=== PATIENT | male | born 1970 | race Caucasian/White ===

== ENCOUNTER 2017-08-12 04:42 | Emergency (ER) | payer MEDICARE, MEDICAID ==
[~2017-08-12] VITALS: Ht 167.6 cm; Wt 81.8 kg
[~2017-08-12 04:42] MED LIST: ALBU18HF2 INH; BUDE10.2 INH; FLUT16SP2 BOTHNARES; LOVA20TA2 PO; MIRT45TA6 PO; PROP20TA6 PO; VENL150T3 PO
[2017-08-12] MEDS ORDERED: normal saline 1000ML IV soln IVB ONE (04:50)
[2017-08-12 05:17] LABS: BASOPHILS # (AUTO) 0.1 X10'3 (0-0.2); BASOPHILS % (AUTO) 0.5 % (0-1); EOSINOPHILS # (AUTO) 0.1 X10'3 (0-0.9); EOSINOPHILS % (AUTO) 0.7 % (0-6); HEMATOCRIT 37.6 % (42.0-52.0); HEMOGLOBIN 12.3 g/dl (14.0-17.9); LYMPHOCYTES # (AUTO) 2.3 X10'3 (1.1-4.8); LYMPHOCYTES % (AUTO) 17.1 % (21-51); MEAN CORPUSCULAR HEMOGLOBIN 28.6 PG (27.0-31.0); MEAN CORPUSCULAR HGB CONC 32.7 % (33.0-36.5); MEAN CORPUSCULAR VOLUME 87.5 FL (78-98); MEAN PLATELET VOLUME 8.7 FL (7.4-10.4); MONOCYTES # (AUTO) 0.9 X10'3 (0-0.9); MONOCYTES % (AUTO) 6.5 % (2-12); NEUTROPHILS # (AUTO) 10.3 X10'3 (1.8-7.7); NEUTROPHILS % (AUTO) 75.2 % (42-75); PLATELET COUNT 184 X10'3 (140-440); RED BLOOD COUNT 4.29 X10'6 (4.70-6.10); RED CELL DISTRIBUTION WIDTH 15.5 % (11.5-14.5); WHITE BLOOD COUNT 13.6 X10'3 (4.5-11.0)
[2017-08-12 05:30] LABS: PARTIAL THROMBOPLASTIN TIME 27 SECONDS (22-32)
[2017-08-12 05:32] LABS: ACETAMINOPHEN < 2.0 UG/ML (10-30); ALANINE AMINOTRANSFERASE 25 U/L (12-78); ALBUMIN 3.2 G/DL (3.4-5.0); ALBUMIN/GLOBULIN RATIO 1.1 (1.1-1.5); ALKALINE PHOSPHATASE 95 IU/L (46-116); ANION GAP 14 (8-16); ASPARTATE AMINO TRANSFERASE 20 U/L (10-37); BILIRUBIN,TOTAL 0.4 MG/DL (0.1-1.0); BLOOD UREA NITROGEN 13 MG/DL (7-18); BUN/CREATININE RATIO 11.3 (5.4-32.0); CALCIUM 8.1 MG/DL (8.5-10.1); CHLORIDE 106 MMOL/L (99-107); CREATININE 1.15 MG/DL (0.60-1.10); ETHANOL 0.011 GM/DL (0.0-0.010); GLUCOSE 71 MG/DL (70-104); MAGNESIUM 1.7 MG/DL (1.5-2.4); POTASSIUM 3.5 MMOL/L (3.5-5.1); SODIUM 141 MMOL/L (135-145); TOTAL CARBON DIOXIDE 21.1 MMOL/L (24-32); TOTAL PROTEIN 6.1 G/DL (6.4-8.2); eGFR 69 ML/MIN
[2017-08-12 05:56] VITALS: BP 137/86
== END 2017-08-12 06:15 | disposition home or self-care (01) ==
LOC: ER 04:42
DX: F41.9 Anxiety disorder, unspecified (principal); R41.0 Disorientation, unspecified; J44.9 Chronic obstructive pulmonary disease, unspecified; F32.9 Major depressive disorder, single episode, unspecified; F20.9 Schizophrenia, unspecified; Z79.899 Other long term (current) drug therapy; Z88.8 Allergy status to other drugs, medicaments and biological substances
CPT/HCPCS: 36415; 70450; 80053; 80320; 80329; 83735; 85025; 85610; 85730; 96360; 99285; J7030

== ENCOUNTER 2018-08-06 07:51 | Inpatient (IN) | payer MEDICARE, MEDICAID ==
[~2018-08-06] VITALS: Ht 180.3 cm; Wt 68.1 kg
[~2018-08-06 07:51] MED LIST changes: +ATI0.5T PO; +ATOR10TA PO; +CITRUCEL PO; +CLOZ100T13 PO; +CLOZ200T PO; +CLOZ25TA12 PO; +INDLA60C PO; +MIRT30TA8 PO; -MIRT45TA6 PO; +MIRT45TA83 PO; +MULT-38 PO; +NICO2GUM29 BC; +VENL225T3 PO
[2018-08-06] MEDS ORDERED: normal saline 1000ML IV soln IVB ONE (08:05)
[2018-08-06] MEDS ORDERED: folic acid 1mg/0.2ml inj IV ONE (08:05)
[2018-08-06] MEDS ORDERED: potassium Cl oral solution 20 MEQ/15 ML PO ONE (08:05)
[2018-08-06] MEDS ORDERED: thiamine 100mg/ml 2ml inj. IV ONE (08:05)
[2018-08-06] MEDS ORDERED: FOLIC ACID IV ONE (08:45)
[2018-08-06] MEDS ORDERED: NORMAL SALINE IV ONE (08:45)
[2018-08-06 08:46] LABS: ALANINE AMINOTRANSFERASE 28 U/L (12-78); ALBUMIN 3.1 G/DL (3.4-5.0); ALKALINE PHOSPHATASE 84 IU/L (46-116); ANION GAP 13 (8-16); ASPARTATE AMINO TRANSFERASE 19 U/L (10-37); BILIRUBIN,TOTAL 0.2 MG/DL (0.1-1.0); BLOOD UREA NITROGEN 10 MG/DL (7-18); BUN/CREATININE RATIO 9.4 (5.4-32.0); CALCIUM 8.2 MG/DL (8.5-10.1); CHLORIDE 105 MMOL/L (99-107); CREATININE 1.06 MG/DL (0.60-1.10); GLUCOSE 123 MG/DL (70-104); POTASSIUM 3.8 MMOL/L (3.5-5.1); SODIUM 142 MMOL/L (135-145); TOTAL CARBON DIOXIDE 23.8 MMOL/L (24-32); TOTAL PROTEIN 6.2 G/DL (6.4-8.2); eGFR 75 ML/MIN
[2018-08-06 08:49] LABS: ETHANOL 0.048 GM/DL (0.0-0.010); TROPONIN I < 0.04 NG/ML (0.0-0.05)
[2018-08-06 10:04] LABS: BASOPHILS % (AUTO) 0.4 % (0-1); EOSINOPHILS # (AUTO) 0.1 X10'3 (0-0.9); EOSINOPHILS % (AUTO) 1.2 % (0-6); HEMATOCRIT 37.9 % (42.0-52.0); HEMOGLOBIN 12.5 g/dl (14.0-17.9); LYMPHOCYTES # (AUTO) 2.2 X10'3 (1.1-4.8); LYMPHOCYTES % (AUTO) 21.5 % (21-51); MEAN CORPUSCULAR HEMOGLOBIN 29.8 PG (27.0-31.0); MEAN CORPUSCULAR HGB CONC 32.9 % (33.0-36.5); MEAN CORPUSCULAR VOLUME 90.6 FL (78-98); MEAN PLATELET VOLUME 8.3 FL (7.4-10.4); MONOCYTES # (AUTO) 0.4 X10'3 (0-0.9); MONOCYTES % (AUTO) 4.3 % (2-12); NEUTROPHILS # (AUTO) 7.8 X10'3 (1.8-7.7); NEUTROPHILS % (AUTO) 72.6 % (42-75); PLATELET COUNT 250 X10'3 (140-440); RED BLOOD COUNT 4.18 X10'6 (4.70-6.10); RED CELL DISTRIBUTION WIDTH 14.9 % (11.5-14.5); WHITE BLOOD COUNT 10.4 X10'3 (4.5-11.0)
[2018-08-06 10:14] LABS: CLARITY,URINE CLEAR (Clear); COLOR,URINE STRAW (Yellow); GLUCOSE, URINE NEGATIVE (Neg); KETONES,URINE TRACE mg/dl (Neg); LEUKOCYTE ESTERASE ,URINE NEGATIVE (Neg); NITRITES, URINE NEGATIVE (Neg); OCCULT BLOOD,URINE TRACE-LYSED (Neg); PROTEIN,URINE TRACE mg/dl (Neg); UROBILINOGEN,URINE 0.2 E.U/dL (0.2-1.0)
[2018-08-06 10:15] LABS: UA COLLECTION TYPE STRAIGHT CATH
[2018-08-06 10:23] LABS: URINE AMPHETAMINE SCREEN NEGATIVE (Neg); URINE BARBITUATE SCREEN NEGATIVE (Neg); URINE BENZODIAZEPINES SCREEN NEGATIVE (Neg); URINE CANNABINOID SCREEN NEGATIVE (Neg); URINE COCAINE SCREEN NEGATIVE (Neg); URINE METHADONE SCREEN NEGATIVE (Neg); URINE OPIATE SCREEN NEGATIVE (Neg); URINE PHENCYCLIDINE SCREEN NEGATIVE (Neg)
[2018-08-06 10:28] LABS: RBC,URINE NONE SEEN /HPF (0-2); WBC,URINE 0-4 /HPF (0-4)
[2018-08-06 10:29] LABS: BACTERIA,URINE NONE SEEN /HPF (Neg); HYALINE CASTS 0-3 /LPF (NEGATIVE); MUCUS STRANDS MODERATE /LPF (Neg); SQUAMOUS EPITHELIAL CELL,UR NONE SEEN /LPF (FEW)
[2018-08-06] MEDS ORDERED: dextrose 50%-water 50ml dispensing syringe IV PRN (14:35)
[2018-08-06] MEDS ORDERED: potassium Cl 40MEQ/NS 500ml 500 ML IV PRN ×2 (14:35)
[2018-08-06] MEDS ORDERED: magnesium Cl slow-release 64mg tablet PO PRN (14:35)
[2018-08-06] MEDS ORDERED: acetaminophen 325mg tablet PO PRN ×3 (14:35→14:45)
[2018-08-06] MEDS ORDERED: ondansetron/PF 4mg/2ml inj IV PRN ×2 (14:35→14:45)
[2018-08-06] MEDS ORDERED: magnesium 4gm in 100ml NS 100 ML IV PRN (14:35)
[2018-08-06] MEDS ORDERED: potassium Cl 20 mEq SR tablet PO PRN ×2 (14:35)
[2018-08-06] MEDS ORDERED: mag hydrox/Alum hydrox/simeth 30ml oral suspension PO PRN ×2 (14:35→14:45)
[2018-08-06] MEDS ORDERED: magnesium hydroxide 30ml (MOM) UD suspension PO PRN (14:45)
[2018-08-06 17:23] VITALS: BP 134/86
[2018-08-06 18:00] VITALS: BP 134/86
--- NOTE | 2018-08-06 18:12 | NUR ---
REPORT GIVEN TO YVONNE MENDOZA
--- NOTE | 2018-08-06 18:48 | NUR ---
RECEIVED REPORT FROM DEVAN MENDOZA AND ASSUMED PATIENT CARE
[2018-08-06] MEDS: LORazepam 2 mg/ml vial IV PRN (19:18)
[2018-08-06] MEDS ORDERED: temazepam 15mg capsule PO PRN (21:00)
[2018-08-06] MEDS: albuterol 2.5 MG/3 ML nebule NEB PRN (21:09)
[2018-08-06] MEDS: budesonide 0.5mg/2ml UD nebule IH SCH (21:09)
[2018-08-06] MEDS: docusate sod 100mg capsule PO SCH (21:16)
[2018-08-06] MEDS: propranolol 40mg tablet PO SCH (21:16)
[2018-08-06] MEDS: mirtazapine 15mg tablet PO SCH (21:16)
[2018-08-06 21:50] VITALS: BP 132/84
[2018-08-07] MEDS: LORazepam 2 mg/ml vial IV PRN (01:10)
[2018-08-07 06:00] VITALS: BP 109/72
--- NOTE | 2018-08-07 06:00 | NUR ---
REPORT GIVEN TO DANIEL MENDOZA
[2018-08-07 06:09] LABS: BASOPHILS % (AUTO) 0.4 % (0-1); EOSINOPHILS # (AUTO) 0.2 X10'3 (0-0.9); EOSINOPHILS % (AUTO) 1.8 % (0-6); HEMOGLOBIN 11.6 g/dl (14.0-17.9); LYMPHOCYTES # (AUTO) 2.3 X10'3 (1.1-4.8); LYMPHOCYTES % (AUTO) 21.8 % (21-51); MEAN CORPUSCULAR HEMOGLOBIN 30.8 PG (27.0-31.0); MEAN CORPUSCULAR HGB CONC 34.1 % (33.0-36.5); MEAN CORPUSCULAR VOLUME 90.3 FL (78-98); MEAN PLATELET VOLUME 8.7 FL (7.4-10.4); MONOCYTES # (AUTO) 0.9 X10'3 (0-0.9); MONOCYTES % (AUTO) 8.4 % (2-12); NEUTROPHILS # (AUTO) 7.2 X10'3 (1.8-7.7); NEUTROPHILS % (AUTO) 67.6 % (42-75); PLATELET COUNT 196 X10'3 (140-440); RED BLOOD COUNT 3.77 X10'6 (4.70-6.10); WHITE BLOOD COUNT 10.6 X10'3 (4.5-11.0)
[2018-08-07 06:18] LABS: ALANINE AMINOTRANSFERASE 23 U/L (12-78); ALBUMIN 2.8 G/DL (3.4-5.0); ALKALINE PHOSPHATASE 78 IU/L (46-116); ANION GAP 7 (8-16); ASPARTATE AMINO TRANSFERASE 20 U/L (10-37); BILIRUBIN,TOTAL 0.6 MG/DL (0.1-1.0); BLOOD UREA NITROGEN 9 MG/DL (7-18); BUN/CREATININE RATIO 9.6 (5.4-32.0); CALCIUM 8.5 MG/DL (8.5-10.1); CHLORIDE 108 MMOL/L (99-107); CREATININE 0.94 MG/DL (0.60-1.10); GLUCOSE 94 MG/DL (70-104); MAGNESIUM 1.8 MG/DL (1.5-2.4); POTASSIUM 3.7 MMOL/L (3.5-5.1); SODIUM 142 MMOL/L (135-145); TOTAL CARBON DIOXIDE 27.3 MMOL/L (24-32); TOTAL PROTEIN 5.5 G/DL (6.4-8.2); eGFR 86 ML/MIN
[2018-08-07] MEDS: LORazepam 1 MG tablet PO PRN ×3 (07:12→19:11)
[2018-08-07] MEDS: docusate sod 100mg capsule PO SCH ×2 (07:13→22:00)
[2018-08-07] MEDS: pantoprazole 40 MG vial IV SCH (07:13)
[2018-08-07] MEDS: venlafaxine XR 75mg capsule (Q24H) PO SCH (07:13)
[2018-08-07] MEDS: thiamine 100mg tablet PO SCH (07:13)
[2018-08-07] MEDS: fluticasone nasal spray 16GM bottle NS SCH (07:13)
[2018-08-07] MEDS: propranolol 40mg tablet PO SCH ×3 (07:13→22:01)
[2018-08-07] MEDS: atorvastatin 20mg tablet PO SCH (07:13)
[2018-08-07] MEDS: enoxaparin 40mg/0.4ml syringe SQ SCH (07:14)
[2018-08-07] MEDS: K and/or MAG REPLACEMENT MC SCH (08:00)
[2018-08-07] MEDS ORDERED: thiamine 100mg/ml 2ml inj. IV SCH (08:00)
[2018-08-07] MEDS: budesonide 0.5mg/2ml UD nebule IH SCH ×2 (08:42→19:46)
[2018-08-07] MEDS: albuterol 2.5 MG/3 ML nebule NEB PRN ×2 (08:42→19:46)
[2018-08-07 10:00] VITALS: BP 112/79
[2018-08-07] MEDS ORDERED: CLOZ25TA36 PO ×4 (11:22→19:33)
[2018-08-07] MEDS ORDERED: CLOZ100T PO (11:22)
--- NOTE | 2018-08-07 15:41 | NUR ---
SS contacted [facility], spoke geraldine/Doris, per phone consultation [facility] RN will review pt's chart to determine if pt is appropriate for their facility. However, [facility] is full to capacity in their Medicare beds, they may have 1 d/c tomorrow.
--- NOTE | 2018-08-07 16:42 | NUR ---
SS contacted housesmith @ [facility] to f/u on pt's request for admission, per phone consultation, pt is on list for an eval pending bed availability. SS met w/pt to discuss access to [facility] in the event that he is d/c'd. Per discussion, pt was informed of his appointment w/Dr. Root @ [facility] on 09/05/18. Pt is requesting for home delivery of all meds. Plan: SS will meet pt tomorrow morning and provide d/c instructions re MH services, obtained signed consent for [facility] referral. SS will f/u w/CM to determine if HH services would be appropriate as pt needs assistance w/managing his meds, and request for [facility] home delivery of meds services.
[2018-08-07 18:00] VITALS: BP 116/82
--- NOTE | 2018-08-07 18:03 | NUR ---
Problems reprioritized. Patient report given, questions answered & plan of care reviewed with Mervat MENDOZA.
--- NOTE | 2018-08-07 19:24 | NUR ---
RECEIVED REPORT FROM DANIEL MENDOZA AND ASSUMED PATIENT CARE
[2018-08-07] MEDS ORDERED: CLOZAPINE PO SCH (21:15)
[2018-08-07] MEDS ORDERED: clozapine 25mg tablet PO SCH (21:29)
[2018-08-07 22:00] VITALS: BP 118/77
[2018-08-07] MEDS: mirtazapine 15mg tablet PO SCH (22:01)
[2018-08-08] MEDS: LORazepam 0.5 MG tablet PO PRN ×3 (01:33→20:07)
[2018-08-08 06:00] VITALS: BP 91/55
--- NOTE | 2018-08-08 06:00 | NUR ---
Patient in room [facility]. I have received report from Mervat MENDOZA and had the opportunity to ask questions and assume patient care.
[2018-08-08 07:01] LABS: BASOPHILS % (AUTO) 0.4 % (0-1); EOSINOPHILS # (AUTO) 0.1 X10'3 (0-0.9); EOSINOPHILS % (AUTO) 1.2 % (0-6); HEMATOCRIT 34.5 % (42.0-52.0); HEMOGLOBIN 11.6 g/dl (14.0-17.9); LYMPHOCYTES # (AUTO) 1.7 X10'3 (1.1-4.8); LYMPHOCYTES % (AUTO) 17.2 % (21-51); MEAN CORPUSCULAR HEMOGLOBIN 30.5 PG (27.0-31.0); MEAN CORPUSCULAR HGB CONC 33.5 % (33.0-36.5); MEAN CORPUSCULAR VOLUME 90.9 FL (78-98); MEAN PLATELET VOLUME 8.4 FL (7.4-10.4); MONOCYTES # (AUTO) 0.8 X10'3 (0-0.9); MONOCYTES % (AUTO) 8.5 % (2-12); NEUTROPHILS # (AUTO) 7.1 X10'3 (1.8-7.7); NEUTROPHILS % (AUTO) 72.7 % (42-75); PLATELET COUNT 197 X10'3 (140-440); RED BLOOD COUNT 3.79 X10'6 (4.70-6.10); RED CELL DISTRIBUTION WIDTH 14.9 % (11.5-14.5); WHITE BLOOD COUNT 9.7 X10'3 (4.5-11.0)
[2018-08-08 07:17] LABS: GLUCOSE 91 MG/DL (70-104); SODIUM 143 MMOL/L (135-145)
[2018-08-08 07:18] LABS: ALANINE AMINOTRANSFERASE 22 U/L (12-78); ALBUMIN 2.8 G/DL (3.4-5.0); ALBUMIN/GLOBULIN RATIO 0.9 (1.1-1.5); ALKALINE PHOSPHATASE 76 IU/L (46-116); ANION GAP 8 (8-16); ASPARTATE AMINO TRANSFERASE 17 U/L (10-37); BILIRUBIN,TOTAL 0.5 MG/DL (0.1-1.0); BLOOD UREA NITROGEN 11 MG/DL (7-18); BUN/CREATININE RATIO 12.6 (5.4-32.0); CALCIUM 8.6 MG/DL (8.5-10.1); CHLORIDE 107 MMOL/L (99-107); CREATININE 0.87 MG/DL (0.60-1.10); MAGNESIUM 1.7 MG/DL (1.5-2.4); POTASSIUM 3.5 MMOL/L (3.5-5.1); TOTAL CARBON DIOXIDE 27.8 MMOL/L (24-32); TOTAL PROTEIN 5.8 G/DL (6.4-8.2); eGFR > 90 ML/MIN
[2018-08-08] MEDS: propranolol 40mg tablet PO SCH ×3 (07:35→20:07)
[2018-08-08] MEDS: docusate sod 100mg capsule PO SCH ×2 (07:35→20:07)
[2018-08-08] MEDS: thiamine 100mg tablet PO SCH (07:35)
[2018-08-08] MEDS: venlafaxine XR 75mg capsule (Q24H) PO SCH (07:35)
[2018-08-08] MEDS: pantoprazole 40 MG vial IV SCH (07:36)
[2018-08-08] MEDS: enoxaparin 40mg/0.4ml syringe SQ SCH (07:36)
[2018-08-08] MEDS: atorvastatin 20mg tablet PO SCH (07:36)
[2018-08-08] MEDS: fluticasone nasal spray 16GM bottle NS SCH (07:37)
[2018-08-08] MEDS: budesonide 0.5mg/2ml UD nebule IH SCH ×2 (07:56→19:41)
[2018-08-08] MEDS ORDERED: clozapine 25mg tablet PO SCH ×2 (08:00→13:00)
[2018-08-08] MEDS: K and/or MAG REPLACEMENT MC SCH (08:00)
[2018-08-08 10:00] VITALS: BP 114/73
[2018-08-08 18:00] VITALS: BP 99/70
--- NOTE | 2018-08-08 18:15 | NUR ---
PATIENT REPORT RECEIVED FROM ALFONSO MENDOZA.
--- NOTE | 2018-08-08 18:16 | NUR ---
Problems reprioritized. Patient report given, questions answered & plan of care reviewed with Alicia Poe RN.
[2018-08-08] MEDS: mirtazapine 15mg tablet PO SCH (20:07)
[2018-08-08] MEDS ORDERED: clozapine 100mg tablet PO SCH (21:00)
[2018-08-09] MEDS ORDERED: pantoprazole 40mg Tablet.DR PO SCH (07:30)
--- NOTE | 2018-08-09 09:26 | NUR ---
Pt d/c'd to [facility] for brief Psych TX w/dcp of d/c-ing home and coordination of f/u w/Outpt Psych care via [facility]. SS to provide hezf-rizl-sis w/[facility] SW prior to closing out SS referral.
[2018-08-16] MEDS ORDERED: CLOZ25TA36 PO ×2 (14:47)
[2018-08-16] MEDS ORDERED: PROP20TA6 PO (14:47)
[2018-08-16] MEDS ORDERED: MIRT45TA83 PO (14:47)
[2018-08-16] MEDS ORDERED: GABA300C PO (14:47)
[2018-08-16] MEDS ORDERED: ATOR10TA PO (14:47)
[2018-08-16] MEDS ORDERED: PROP40TA72 PO (14:47)
[2018-08-16] MEDS ORDERED: NALT50TA PO (14:47)
[2018-08-16] MEDS ORDERED: CLOZ100T PO (14:47)
[2018-08-16] MEDS ORDERED: VENL150T3 PO (14:47)
[2018-08-16] MEDS ORDERED: HYDR-3686 PO (14:47)
== END 2018-08-08 22:09 | DRG 896 ==
LOC: ER 07:51 → ED HOLD 14:31 → ORTHO 4S 16:40
PROVIDERS: ADMIT Internal Medicine; ATTEND Internal Medicine
DX: F10.920 Alcohol use, unspecified with intoxication, uncomplicated (principal); G92 Toxic encephalopathy; R27.0 Ataxia, unspecified; F20.9 Schizophrenia, unspecified; E86.0 Dehydration; F17.200 Nicotine dependence, unspecified, uncomplicated; F41.9 Anxiety disorder, unspecified; I10 Essential (primary) hypertension; J44.9 Chronic obstructive pulmonary disease, unspecified; F32.9 Major depressive disorder, single episode, unspecified; R07.89 Other chest pain; Z88.8 Allergy status to other drugs, medicaments and biological substances
CPT/HCPCS: 36415; 70450; 71045; 80053; 80305; 80320; 81001; 82140; 82948; 83735; 84484; 85025; 85610; 87070; 93005; 93306; 94640; 94760; 96365; 96366; 96375; 99285; C9113; G0378; J1650; J2060; J3411; J3490; J7040; J7626

== ENCOUNTER 2018-08-08 19:40 | Inpatient (IN) | payer MEDICARE, MEDICAID | END 2018-08-16 17:00 | disposition home or self-care (01) | LOC: ADULT MH 19:40 | DX: F20.9 Schizophrenia, unspecified (principal); R41.82 Altered mental status, unspecified ==